=== PATIENT | male | born 1990 | race Caucasian/White ===

== ENCOUNTER 2019-06-26 12:45 | Emergency (ER) | payer OTHER ==
[~2019-06-26] VITALS: Ht 180.3 cm; Wt 91.5 kg
[2019-06-26 12:49] VITALS: BP 156/98; PULSE 62; RESP 18; Ht 180.3 cm; Wt 91.5 kg
== END 2019-06-26 14:53 | disposition home or self-care (01) ==
LOC: FTE 12:45
DX: N50.811 Right testicular pain (principal)
CPT/HCPCS: 76775; 76870; 81001